=== PATIENT | female | born 1950 | race Caucasian/White ===

== ENCOUNTER 2019-03-29 19:53 | Emergency (ER) | payer BC ==
[~2019-03-29] VITALS: Ht 162.6 cm; Wt 59.0 kg
--- NOTE | 2019-03-29 20:38 | NUR ---
ER physician at bedside in patients room .
[2019-03-29] MEDS ORDERED: MORPHINE SULFATE 2 MG/1 ML DISP.SYRIN IM ONE ×2 (20:45→21:45)
[2019-03-29] MEDS ORDERED: IBUPROFEN 600 MG TABLET PO ONE (20:45)
[2019-03-29] MEDS ORDERED: MORPHINE SULFATE 2 MG/1 ML DISP.SYRIN ONE ×2 (20:48→21:57)
[2019-03-29] MEDS ORDERED: IBUPROFEN 600 MG TABLET ONE (20:53)
--- NOTE | 2019-03-29 20:53 | NUR ---
laborer bituminous paving at bedside
--- NOTE | 2019-03-29 20:54 | NUR ---
x-ray data center technician at bedside.
[2019-03-29 20:58] LABS: BASOPHILS % (AUTO) 0.2 % (0.0-2.0); EOSINOPHILS # (AUTO) 0.1 K/uL (0.0-0.7); EOSINOPHILS % (AUTO) 1.1 % (0.0-7.0); HEMATOCRIT 35.7 % (31.2-41.9); HEMOGLOBIN 11.9 g/dL (10.9-14.3); LYMPHOCYTES # (AUTO) 1.8 K/uL (20.0-40.0); LYMPHOCYTES % (AUTO) 30.7 % (20.5-51.5); MEAN CORPUSCULAR HEMOGLOBIN 30.6 uug (24.7-32.8); MEAN CORPUSCULAR HGB CONC 33 g/dL (32.3-35.6); MEAN CORPUSCULAR VOLUME 92.3 fL (75.5-95.3); MONOCYTES # (AUTO) 0.5 K/uL (2.0-10.0); NEUTROPHILS # (AUTO) 3.5 K/uL (1.8-8.9); PLATELET COUNT (AUTO) 249 K/uL (179-408); RED BLOOD CELL COUNT(AUTO) 3.87 MIL/uL (3.63-4.92)
[2019-03-29 21:08] LABS: CREATININE 0.8 mg/dL (0.6-1.3); POTASSIUM 4.5 mmol/L (3.5-5.1)
[2019-03-29 21:13] LABS: BILIRUBIN,DIRECT 0.1 mg/dL (0.0-0.2); BILIRUBIN,TOTAL 0.2 mg/dL (0.2-1.0); TOTAL PROTEIN, SERUM 6.9 g/dL (6.4-8.2)
--- NOTE | 2019-03-29 21:23 | NUR ---
electrical controls technician at bedside
--- NOTE | 2019-03-29 22:16 | NUR ---
Dr. Chang's number was given to PEDRO Curry to have doctor to doctor.
--- NOTE | 2019-03-29 22:31 | NUR ---
PEDRO on the phone speaking to Dr. Chang regarding patient case.
--- NOTE | 2019-03-29 22:34 | NUR ---
Physician-physician comunication. Dr. Chang from receiving facility has accepted the patient.
--- NOTE | 2019-03-29 23:51 | NUR ---
[facility] Case Management [facility] called Back Patient will be going to [facility] ER. Admitting MD is Dr Chang.
--- NOTE | 2019-03-30 00:08 | NUR ---
spoke to [facility] for patient transfer. ETA [id number]
--- NOTE | 2019-03-30 00:11 | NUR ---
Called receiving facility to give report/ Nurse stated he had already received report from case management.
--- NOTE | 2019-03-30 01:45 | NUR ---
patient picked up from [facility] to be transferred to [facility] . patient ins table condition,. all belongings taken with the patient. all medical records given to EMT.
== END 2019-03-30 01:55 | disposition short-term general hospital (02) ==
LOC: ER 20:02
DX: M25.561 Pain in right knee (principal); E78.5 Hyperlipidemia, unspecified; F32.9 Major depressive disorder, single episode, unspecified; E03.9 Hypothyroidism, unspecified
CPT/HCPCS: 36415; 73562; 80048; 80076; 85025; 85730; 93971; 96372 ×2; 99285; J2270 ×2; A4663